=== PATIENT | male | born 1955 | race Hispanic/Latino ===

== ENCOUNTER 2019-12-18 05:07 | Inpatient (IN) | payer OTHER ==
[~2019-12-18] VITALS: Ht 172.7 cm; Wt 95.6 kg
[2019-12-18 06:52] VITALS: BP 159/79
--- NOTE | 2019-12-18 07:03 | NUR ---
REPORT RECEIVED. PT ARRIVED AT UNIT AT [address] REYES AT UNIT HAVE SEEN PT AND PT REQUESTED TO BE DNR. PT IS SCHEDULED FOR [facility] BY DR MACHADO THIS AM BUT PER REPORT PT RECEIVED LOVENOX 90 MG AT [facility] BEFORE COMING TO [facility]. NEED TO CONTACT CARDIOLOGY TO VERIFY.
--- NOTE | 2019-12-18 07:05 | NUR ---
CONTACTED SOIL CONSERVATION TECHNICIAN TO VERIFY LHC SCHEDULE, RN REDIRECTED TO CONTACT SCHEDULING OR CARDIOLOGY.
[2019-12-18] MEDS ORDERED: POTASSIUM CHLORIDE 20MEQ/100ML 100 ML IV PRN (07:45)
[2019-12-18] MEDS ORDERED: POTASSIUM CHLORIDE 20 MEQ ERTAB PO PRN (07:45)
[2019-12-18] MEDS ORDERED: LIDOCAINE HCL-MPF 1% 2ML VIAL IV PRN (07:45)
[2019-12-18] MEDS ORDERED: HYDRALAZINE HCL 20 MG/ML VIAL IV PRN (07:45)
[2019-12-18] MEDS ORDERED: POTASSIUM CHLORIDE 10% ELIXIR 20 MEQ/15 ML UDCUP PO PRN (07:45)
--- NOTE | 2019-12-18 07:55 | NUR ---
DR MACHADO CAME TO SEE PATIENT. PT EVALUATED AT THE BEDSIDE, PATIENT AGREED TO BE FULL CODE BECAUSE OF THE RISK OF THE [facility] THAT HE MIGHT NEED. PT AGREED TO RECEIVE MEDICAL MANAGEMENT TODAY. DR WILL REVIEW 2DECHO AND PT WILL REMAIN INOBSERVATION WITH MED MANAGEMENT UNTIL TOMORROW WHEN DR. MACHADO WILL EVALUATE PT AGAIN. MEDICATION ORDERS ENTERED IN CPOM. PT DOESN;'T HAVE PAIN AT THIS TIME. VSS STABLE AT THIS TIME. WILL CONT TO MONITOR.
[2019-12-18] MEDS ORDERED: ASPIRIN 81MG TAB.CHEW PO SCH (08:30)
[2019-12-18] MEDS ORDERED: CLOPIDOGREL BISULFATE 300 MG TAB PO SCH (08:30)
[2019-12-18 08:46] LABS: INR 0.98 (0.85-1.15); PROTHROMBIN TIME 10.6 SEC (9.6-11.6)
[2019-12-18 10:00] VITALS: BP 167/76
[2019-12-18] MEDS: METOPROLOL TARTRATE 25 MG TAB PO SCH ×2 (10:48→20:27)
[2019-12-18] MEDS: FAMOTIDINE/PF 20 MG/2 ML VIAL IV SCH ×2 (10:48→20:27)
[2019-12-18] MEDS: ATORVASTATIN CALCIUM 40 MG TABLET PO SCH (10:48)
[2019-12-18] MEDS: INSULIN HUMULIN R 100 UNIT/ML 3ML SQ SCH ×3 (11:30→21:00)
[2019-12-18] MEDS ORDERED: ISOSORBIDE MONO 60 MG TAB.SR PO SCH (11:45)
[2019-12-18] MEDS ORDERED: PHARMACY COMMUNICATION MISC SCH (14:00)
[2019-12-18] MEDS: HEPARIN SODIUM 5000UNIT/ML 1ML VIAL IV PRN (16:11)
[2019-12-18] MEDS: HEPARIN 25000 UNITS/250 ML D5W 250 ML IV PRN ×2 (16:12→23:37)
--- NOTE | 2019-12-18 16:50 | NUR ---
DC PLAN PATIENT IN ROOM. CALLED SPOUSE CALEB. PATIENT LIVES WITH SPOUSE. INDEPENDENT ABLE TO PERFORM ADL'S. PATIENT HAS NO SERVICES OR DME'S. FEELS SAFE TO RETURN HOME. 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 Addendum: 12/18/19 at 1652 by ROBBIE LOVELACE RN CM Amended: Links added.
[2019-12-18] MEDS: SODIUM CHLORIDE 0.9% 1000ML 1,000 ML IV SCH ×2 (18:00→19:21)
[2019-12-18 18:37] VITALS: BP 116/68
[2019-12-18 19:00] VITALS: BP 141/59
[2019-12-18 23:00] VITALS: BP 138/62
[2019-12-19 03:00] VITALS: BP 132/64
[2019-12-19] MEDS: SODIUM CHLORIDE 0.9% 1000ML 1,000 ML IV SCH ×3 (03:15→21:49)
[2019-12-19 05:51] LABS: BASOPHILS % (AUTO) 0.3 % (0.0-5.0); EOSINOPHILS % (AUTO) 2.1 % (0.0-8.0); HEMATOCRIT 32.9 % (42-54); LYMPHOCYTES % (AUTO) 18.1 % (21.0-51.0); MEAN CORPUSCULAR HEMOGLOBIN 27.1 pg (27.0-33.0); MEAN CORPUSCULAR HGB CONC 31.6 g/dL (32.0-36.0); MEAN CORPUSCULAR VOLUME 85.7 fL (79-99); MONOCYTES % (AUTO) 8.6 % (3.0-13.0); NEUTROPHILS % (AUTO) 70.5 % (40.0-77.0); PLATELET COUNT (AUTO) 367 K/uL (130-400); RED BLOOD CELL COUNT(AUTO) 3.84 MIL/uL (4.50-6.20); RED CELL DISTRIBUTION WIDTH 15.5 % (11.0-15.5); WHITE BLOOD COUNT (AUTO) 9.7 K/uL (4.8-10.8)
[2019-12-19 06:15] LABS: ALANINE AMINOTRANSFERASE 20 U/L (12-78); ALBUMIN 2.4 g/dL (3.5-5.0); ASPARTATE AMINOTRANSFERASE 21 U/L (10-37); BILIRUBIN,TOTAL 0.2 mg/dL (0.2-1.0); CARBON DIOXIDE 26 mmol/L (21-32); CHLORIDE 106 mmol/L (101-111); CREATININE 1.2 mg/dL (0.5-1.5); GLOMERULAR FILTR. RATE CALC 65 mL/min (>60); GLUCOSE,RANDOM 145 mg/dL (70-105); LACTATE DEHYDROGENASE 169 U/L (81-234); POTASSIUM 4.2 mmol/L (3.5-5.1); SODIUM SERUM 139 mmol/L (136-145); TOTAL PROTEIN, SERUM 6.7 g/dL (6.0-8.3); UREA NITROGEN, BLOOD 21 mg/dL (7-18)
[2019-12-19] MEDS: INSULIN HUMULIN R 100 UNIT/ML 3ML SQ SCH ×4 (06:46→21:00)
[2019-12-19] MEDS: FAMOTIDINE/PF 20 MG/2 ML VIAL IV SCH ×2 (08:11→21:48)
[2019-12-19] MEDS: METOPROLOL TARTRATE 25 MG TAB PO SCH ×2 (08:11→21:48)
[2019-12-19] MEDS: ATORVASTATIN CALCIUM 40 MG TABLET PO SCH (08:11)
[2019-12-19] MEDS: ISOSORBIDE MONO 60 MG TAB.SR PO SCH (08:12)
[2019-12-19] MEDS: CLOPIDOGREL BISULFATE 75 MG TAB PO SCH (08:12)
[2019-12-19] MEDS: HEPARIN SODIUM 5000UNIT/ML 1ML VIAL IV PRN (08:13)
--- NOTE | 2019-12-19 08:13 | NUR ---
HEP PROTOCOL BOLUSED 3000 UNIT IV PER PROTOCOL FOR PTT=36.6[place] [address] UNIT/KG/HR=16.49 MLS/HR
--- NOTE | 2019-12-19 08:39 | NUR ---
AT THIS TIME DR. MACHADO IS VISITING AND TALKING TO PATIENT ABOUT POC. PT WILL REMAIN IN HOSPITAL FOR 2 MORE DAYS FOR HEP GTT. EDUCATION ABOUT SMOKING CESSATION INCLUDING MEDICATION TO HELP TO STOP. EDUCATION ABOUT LIMITED ACTIVITIES FOR NEXT 2 WEEKS AND FOLLOW UP WITH CARDIOLOGY IN ONE WEEK.
[2019-12-19] MEDS ORDERED: LISINOPRIL 10 MG TABLET PO SCH (09:00)
[2019-12-19] MEDS: NICOTINE 21 MG/ 24 HR PATCH TD SCH (10:03)
[2019-12-19] MEDS: ASPIRIN 81MG TAB.CHEW PO SCH (10:04)
[2019-12-19 10:10] VITALS: BP 143/84
[2019-12-19 12:24] VITALS: BP 178/93
--- NOTE | 2019-12-19 14:19 | NUR ---
VERIFIED WITH LAB PTT=52.4. NO CHANGES PER PROTOCOL. RE-DRAW AT 18:30 PM. ORDERS ENTERED.
[2019-12-19 14:20] VITALS: BP 135/76
[2019-12-19] MEDS: HEPARIN 25000 UNITS/250 ML D5W 250 ML IV PRN (18:48)
--- NOTE | 2019-12-19 19:30 | NUR ---
assessment teaching, patient awake, alert, ox3, no sob, no/co pain at this time, ptt 68 within parameters, no change on heparin gtt continue with present rate at 1700 units hour, teach patient plan of care and expected outcome, patient verbalizes understanding via teach back
[2019-12-19 20:17] VITALS: BP_SYST 137; BP_SYST 164; BP_DIAS 83; BP_DIAS 88
[2019-12-19 20:25] VITALS: BP_SYST 105; BP_SYST 164; BP_DIAS 73; BP_DIAS 83
[2019-12-20] VITALS (7 sets, daily range): BP systolic 133–191; BP diastolic 64–87
[2019-12-20] MEDS: HEPARIN 25000 UNITS/250 ML D5W 250 ML IV PRN ×2 (00:08→20:11)
[2019-12-20 04:51] LABS: BASOPHILS % (AUTO) 0.4 % (0.0-5.0); EOSINOPHILS % (AUTO) 2.6 % (0.0-8.0); HEMATOCRIT 30.4 % (42-54); LYMPHOCYTES % (AUTO) 24.7 % (21.0-51.0); MEAN CORPUSCULAR HEMOGLOBIN 27.1 pg (27.0-33.0); MEAN CORPUSCULAR HGB CONC 31.9 g/dL (32.0-36.0); MEAN CORPUSCULAR VOLUME 84.9 fL (79-99); MONOCYTES % (AUTO) 9.7 % (3.0-13.0); NEUTROPHILS % (AUTO) 62.5 % (40.0-77.0); PLATELET COUNT (AUTO) 326 K/uL (130-400); RED BLOOD CELL COUNT(AUTO) 3.58 MIL/uL (4.50-6.20); RED CELL DISTRIBUTION WIDTH 15.4 % (11.0-15.5); WHITE BLOOD COUNT (AUTO) 7.2 K/uL (4.8-10.8)
[2019-12-20 05:12] LABS: ALANINE AMINOTRANSFERASE 20 U/L (12-78); ALBUMIN 2.2 g/dL (3.5-5.0); ASPARTATE AMINOTRANSFERASE 18 U/L (10-37); BILIRUBIN,TOTAL 0.2 mg/dL (0.2-1.0); CARBON DIOXIDE 24 mmol/L (21-32); CHLORIDE 108 mmol/L (101-111); GLOMERULAR FILTR. RATE CALC 80 mL/min (>60); GLUCOSE,RANDOM 123 mg/dL (70-105); LACTATE DEHYDROGENASE 171 U/L (81-234); POTASSIUM 3.5 mmol/L (3.5-5.1); SODIUM SERUM 141 mmol/L (136-145); TOTAL PROTEIN, SERUM 6.3 g/dL (6.0-8.3); UREA NITROGEN, BLOOD 11 mg/dL (7-18)
[2019-12-20] MEDS: INSULIN HUMULIN R 100 UNIT/ML 3ML SQ SCH ×4 (06:09→20:21)
[2019-12-20] MEDS: ISOSORBIDE MONO 60 MG TAB.SR PO SCH (09:00)
[2019-12-20] MEDS: ATORVASTATIN CALCIUM 40 MG TABLET PO SCH (09:00)
[2019-12-20] MEDS: CLOPIDOGREL BISULFATE 75 MG TAB PO SCH (09:00)
[2019-12-20] MEDS: ASPIRIN 81MG TAB.CHEW PO SCH (09:00)
[2019-12-20] MEDS: NICOTINE 21 MG/ 24 HR PATCH TD SCH (09:00)
[2019-12-20] MEDS: SODIUM CHLORIDE 0.9% 1000ML 1,000 ML IV SCH ×3 (09:00→20:15)
[2019-12-20] MEDS: FAMOTIDINE/PF 20 MG/2 ML VIAL IV SCH ×2 (09:00→20:15)
[2019-12-20] MEDS: METOPROLOL TARTRATE 50 MG TAB PO SCH (20:15)
[2019-12-21 01:49] LABS: BASOPHILS % (AUTO) 0.4 % (0.0-5.0); HEMATOCRIT 28.7 % (42-54); LYMPHOCYTES % (AUTO) 29.2 % (21.0-51.0); MEAN CORPUSCULAR HEMOGLOBIN 27.8 pg (27.0-33.0); MEAN CORPUSCULAR HGB CONC 32.4 g/dL (32.0-36.0); MEAN CORPUSCULAR VOLUME 85.7 fL (79-99); MONOCYTES % (AUTO) 10.1 % (3.0-13.0); NEUTROPHILS % (AUTO) 56.8 % (40.0-77.0); PLATELET COUNT (AUTO) 295 K/uL (130-400); RED BLOOD CELL COUNT(AUTO) 3.35 MIL/uL (4.50-6.20); RED CELL DISTRIBUTION WIDTH 15.4 % (11.0-15.5); WHITE BLOOD COUNT (AUTO) 7.7 K/uL (4.8-10.8)
[2019-12-21 02:09] LABS: ALANINE AMINOTRANSFERASE 23 U/L (12-78); ALBUMIN 2.1 g/dL (3.5-5.0); ASPARTATE AMINOTRANSFERASE 22 U/L (10-37); BILIRUBIN,TOTAL 0.2 mg/dL (0.2-1.0); CARBON DIOXIDE 24 mmol/L (21-32); CHLORIDE 107 mmol/L (101-111); GLOMERULAR FILTR. RATE CALC 80 mL/min (>60); GLUCOSE,RANDOM 126 mg/dL (70-105); LACTATE DEHYDROGENASE 150 U/L (81-234); POTASSIUM 3.4 mmol/L (3.5-5.1); SODIUM SERUM 139 mmol/L (136-145); TOTAL PROTEIN, SERUM 5.9 g/dL (6.0-8.3); UREA NITROGEN, BLOOD 14 mg/dL (7-18)
[2019-12-21 03:00] VITALS: BP 149/55
[2019-12-21] MEDS: INSULIN HUMULIN R 100 UNIT/ML 3ML SQ SCH ×3 (05:56→16:22)
[2019-12-21 08:06] VITALS: BP 167/74
[2019-12-21] MEDS: CLOPIDOGREL BISULFATE 75 MG TAB PO SCH (08:54)
[2019-12-21] MEDS: FAMOTIDINE/PF 20 MG/2 ML VIAL IV SCH (08:54)
[2019-12-21] MEDS: ASPIRIN 81MG TAB.CHEW PO SCH (08:55)
[2019-12-21] MEDS: METOPROLOL TARTRATE 50 MG TAB PO SCH (08:55)
[2019-12-21] MEDS: ISOSORBIDE MONO 60 MG TAB.SR PO SCH (08:55)
[2019-12-21] MEDS: ATORVASTATIN CALCIUM 40 MG TABLET PO SCH (08:55)
[2019-12-21] MEDS ORDERED: LISINOPRIL 20 MG TABLET PO SCH ×2 (09:00→21:00)
[2019-12-21] MEDS: NICOTINE 21 MG/ 24 HR PATCH TD SCH (09:19)
[2019-12-21 11:56] VITALS: BP 152/73
[2019-12-21] MEDS: SODIUM CHLORIDE 0.9% 1000ML 1,000 ML IV SCH (15:15)
[2019-12-21 15:43] VITALS: BP 152/60
[2019-12-21] MEDS ORDERED: METF-444 PO (17:22)
[2019-12-21] MEDS ORDERED: CLOP75TA14 PO (18:10)
[2019-12-21] MEDS ORDERED: ATOR40TA69 PO (18:10)
[2019-12-21] MEDS ORDERED: ASPI-1005 PO (18:10)
[2019-12-21] MEDS ORDERED: Isosorbide Mono 60 Mg Tab.sr PO (18:10)
[2019-12-21] MEDS ORDERED: METO50 PO (18:11)
[2019-12-21] MEDS ORDERED: LISI-613 PO (18:11)
== END 2019-12-21 19:20 | disposition home or self-care (01) | DRG 190 ==
LOC: 2AH 06:39
PROVIDERS: ADMIT Internal Medicine; ATTEND Internal Medicine
DX: I21.4 Non-ST elevation (NSTEMI) myocardial infarction (principal); U07.1 COVID-19; I21.3 ST elevation (STEMI) myocardial infarction of unspecified site; I10 Essential (primary) hypertension; E11.9 Type 2 diabetes mellitus without complications; K21.9 Gastro-esophageal reflux disease without esophagitis; I44.7 Left bundle-branch block, unspecified; F17.210 Nicotine dependence, cigarettes, uncomplicated; F12.90 Cannabis use, unspecified, uncomplicated; Z66 Do not resuscitate; E78.5 Hyperlipidemia, unspecified; I50.33 Acute on chronic diastolic (congestive) heart failure; D63.8 Anemia in other chronic diseases classified elsewhere; I11.0 Hypertensive heart disease with heart failure; E11.51 Type 2 diabetes mellitus with diabetic peripheral angiopathy without gangrene; Z79.84 Long term (current) use of oral hypoglycemic drugs; Z83.3 Family history of diabetes mellitus; Z82.5 Family history of asthma and other chronic lower respiratory diseases; Z82.49 Family history of ischemic heart disease and other diseases of the circulatory system
CPT/HCPCS: 36415; 80053; 82728; 82948; 83615; 83735; 84145; 84484; 85025; 85378; 85610; 85730; 86140; 93306; G0378; J1644; J1815; J3490; J7030